=== PATIENT | male | born 1990 | race Caucasian/White ===

== ENCOUNTER 2018-03-19 21:52 | Emergency (ER) | payer OTHER | END 2018-03-20 | disposition home or self-care (01) | LOC: FTE 03-20 | DX: J20.9 Acute bronchitis, unspecified (principal) | CPT/HCPCS: 99283 ==

== ENCOUNTER 2018-04-16 20:51 | Emergency (ER) | payer OTHER ==
[2018-04-16] MEDS: KETOROLAC 30 MG INJ IM (21:22)
== END 2018-04-16 21:40 | disposition home or self-care (01) ==
LOC: FTE 20:51
DX: R51 Headache (principal)
CPT/HCPCS: 96372; 99284-25

== ENCOUNTER 2018-09-28 16:32 | Emergency (ER) | payer OTHER ==
[2018-09-28] MEDS: HYDROCODONE/APAP (5/325) TAB PO (17:03)
== END 2018-09-28 17:25 | disposition home or self-care (01) ==
LOC: FTE 16:32
DX: H65.91 Unspecified nonsuppurative otitis media, right ear (principal)
CPT/HCPCS: 99283

== ENCOUNTER 2018-11-15 23:54 | Emergency (ER) | payer OTHER ==
[2018-11-16] MEDS: ACETAMINOPHEN 325 MG TAB PO (01:58)
== END 2018-11-16 03:52 | disposition home or self-care (01) ==
LOC: FTE 23:54
DX: S92.352A Displaced fracture of fifth metatarsal bone, left foot, initial encounter for closed fracture (principal); W19.XXXA Unspecified fall, initial encounter; Y92.9 Unspecified place or not applicable
CPT/HCPCS: 73630; 73630-LT; 99283-25